=== PATIENT | male | born 1995 | race Two or more races ===

== ENCOUNTER 2023-09-02 08:03 | Outpatient (CLI) | payer OTHER | END 2023-09-02 08:12 | disposition home or self-care (01) | LOC: RX STUDY 08:03 | DX: R10.13 Epigastric pain (principal) ==

== ENCOUNTER 2023-09-23 12:59 | Outpatient (CLI) | payer OTHER | END 2023-09-23 13:04 | disposition home or self-care (01) | LOC: RAD 12:59 | DX: E74.19 Other disorders of fructose metabolism (principal); M41.9 Scoliosis, unspecified; E71.40 Disorder of carnitine metabolism, unspecified ==

== ENCOUNTER 2023-09-26 11:59 | Emergency (ER) | payer OTHER ==
[~2023-09-26] VITALS: Ht 180.3 cm; Wt 88.5 kg
[2023-09-26] MEDS ORDERED: KETOROLAC TROMETHAMINE 60 MG VIAL IM ONE ×2 (13:00→13:53)
[2023-09-26] MEDS ORDERED: KETO10TA2 PO (15:10)
== END 2023-09-26 15:18 | disposition home or self-care (01) ==
LOC: ER 12:01
DX: M79.641 Pain in right hand (principal); Z88.4 Allergy status to anesthetic agent; Z87.39 Personal history of other diseases of the musculoskeletal system and connective tissue